=== PATIENT | female | born 1960 | race Caucasian/White ===

== ENCOUNTER → 2017-03-30 | Outpatient (CLI) | payer BC ==
[~2017-03-30] MED LIST: METO25TA56 PO
--- NOTE | 2017-03-30 12:16 | DIAGNOSTIC IMAGING REPORT ---
RIGHT ELBOW 4 VIEWS CLINICAL HISTORY: Fall with right elbow pain. FINDINGS: 4 views of the right elbow are compared to study dated 06/03/2008. The skeletal structures are osteopenic. There is a minimally angulated radial head fracture. No additional fracture is identified and no elbow dislocation is seen. There is associated joint effusion. Dorsal soft tissue edema is noted. IMPRESSION: Minimally angulated radial head fracture with associated joint effusion. Electronically signed by: Kane Peña M.D. 03/30/2017 12:15 PM Dictated Date/Time: 03/30/2017 12:13 PM
== END | disposition home or self-care (01) ==
LOC: C.RAD 11:43
PROVIDERS: ATTEND Family Medicine
DX: M25.521 Pain in right elbow (principal)

== ENCOUNTER → 2017-07-28 | Outpatient (CLI) | payer BC ==
--- NOTE | 2017-07-29 07:54 | MAMMOGRAPHY REPORT ---
BILATERAL DIGITAL SCREENING MAMMOGRAM TOMOSYNTHESIS WITH CAD: 07/28/2017 CLINICAL HISTORY: Routine screening. Patient has no complaints. TECHNIQUE: Breast tomosynthesis in addition to standard 2D mammography was performed. Current study was also evaluated with a Computer Aided Detection (CAD) system. COMPARISON: Comparison is made to exams dated: 07/26/2016 mammogram, 07/25/2015 mammogram, 4 mammogram, 07/21/2013 mammogram, 07/20/2012 mammogram, and 07/17/2011 mammogram - [facility]. BREAST COMPOSITION: The tissue of both breasts is heterogeneously dense, which may obscure small mas ses. FINDINGS: The parenchymal pattern is unchanged. No developing mass, architectural distortion or clus ter of suspicious microcalcifications is seen in either breast. There are mild vascular calcificatio ns in the breasts. A few scattered benign rim calcifications. IMPRESSION: ACR BI-RADS CATEGORY 2: BENIGN There is no mammographic evidence of malignancy. A 1 year screening mammogram is recommended. The pa tient will receive written notification of the results. Approximately 10% of breast cancers are not detected with mammography. A negative mammographic report should not delay biopsy if a clinically suggestive mass is present. Iva Campos M.D. ay/:07/28/2017 16:26:36 Event Set Up Specialist: Susanna RODRÍGUEZ(Brett)(M), [facility] letter sent: Normal 1/2 BI-RADS Code: ACR BI-RADS Category 2: Benign
== END | disposition home or self-care (01) ==
LOC: C.MAMM 14:39
PROVIDERS: ATTEND Nurse Practitioner Family
DX: Z12.31 Encounter for screening mammogram for malignant neoplasm of breast (principal)

== ENCOUNTER 2023-12-07 12:51 | Inpatient (IN) ==
--- OUTSIDE RECORDS SUMMARY | 2023-12-07 12:57 | External Medical Summary | Continuity of Care Document ---
Author Name Unknown Organization [facility] [address] [facility] [address] [id number] Care Team Providers Care Old [employer] Professor Name Role Phone Pancho Menjivar Primary Care Physician [phone] [id number] Date(s): 09/02/23 - 09/02/23 [facility] [address] [facility] [address] [phone] Encounter Diagnosis Changing skin lesion(Discharge Diagnosis) - 09/02/23 Discharge Disposition: Home or Self Care Attending Physician: REJI Hall, Coral Hay Referring Physician: MD Menjivar Dongsheng Allergies, Adverse Reactions, Alerts Substance Reaction Severity Status amoxicillin Rash Active Amoxil rash Active Immunizations Given and Recorded Vaccine Date Status Refusal Reason SARS COVID Vaccine Unspecified 06/10/23 Recorded influenza virus vaccine, inactivated 05/03/22 Give n influenza virus vaccine, inactivated 05/25/14 Chris rded SARS-CoV-2 mRNA (Pfizer 12+) bivalent 1 04/26/22 R ecorded SARS-CoV-2 mRNA (tozinameran 5y-11y) 2 11/27/21 Re corded SARS-CoV-2 (COVID-19) mRNA BNT-162b2 vax 3 05/16/21 Recorded SARS-CoV-2 (COVID-19) mRNA BNT-162b2 vax 4 08/21/20 Recorded SARS-CoV-2 (COVID-19) mRNA BNT-162b2 vax 5 07/28/20 Recorded zoster vaccine, inactivated 12/30/18 Given zoster vaccine, inactivated 10/26/18 Given tetanus/diphtheria/pertuss, acel (Tdap) 05/21/16 G iven tetanus/diphtheria/pertuss, acel (Tdap) 10/5/06 R ecorded influenza virus vaccine, H1N1 6 06/13/09 Recorded 1Result Comment: [facility] 2Result Comment: [facility] 3Result Comment: 2021-11-30: Historical information-source unspecified 4Result Comment: 2021-04-10: Historical information-source unspecified 5Result Comment: 2021-04-10: Historical information-source unspecified 6Result Comment: 2021-04-10: Historical information-source unspecified Medications Cortisporin Otic suspension Start: 04/10/21 10:46:00 EDT, 4 drop, both ears, qid, Disp# 10 mL, [id number] Start Date: 04/10/21 Stop Date: 04/15/21 Status: Ordered lisinopril 20 mg oral tablet Start: 07/31/23 16:20:00 EST, See Instructions, Disp# 90 tab, Refills: 0, TAKE 1 TABLET BY MOUTH EVERY DAY, [id number] Start Date: 07/31/23 Status: Ordered Metoprolol Succinate ER 50 mg oral tablet, extended release Start: 07/11/23 10:37:00 EST, 1 tab, PO, Daily, Disp# 90 tab, Refills: 3, [id number] Start Date: 07/11/23 Stop Date: 07/05/24 Status: Ordered Penlac Nail Lacquer 8% topical solution Start: 07/17/21 11:25:00 EST, 1 appl, topical, Daily, Disp# 6.6 mL, Refills: 4, [id number] Start Date: 07/17/21 Stop Date: 11/04/23 Status: Ordered valACYclovir 1 g oral tablet Start: 12/09/22 13:58:00 EDT, See Instructions, Disp# 60 tab, Refills: 0, TAKE 2 TABLETS EVERY 12 HOURS FOR 2 TO 3 DAYS FOR OUTBREAKOF COLD SORES NEEDED, [id number] Start Date: 12/09/22 Status: Ordered Mental Status 09/02/23 Barriers to Learning one year None evide nt Mandatory Health Literacy Documentation Yes Health Literacy Communication Barriers N ever Primary Language Icelandic Problem List Condition Confirmation Course Effective Dates Status H ealth Status Informant Allergic contact dermatitis Confirmed Active Contact dermatitis Confirmed Active Epidermal inclusion cyst Confirmed Active Hx stress fracture Confirmed Active Hammertoe of left foot Confirmed Active Bilateral high frequency sensorineural hearing loss Confirmed Active Hypertensive disorder Confirmed Active Plantar plate injury Confirmed Active Metatarsalgia, left foot Confirmed Active Tinea unguium Confirmed Active Right carpal tunnel syndrome Confirmed Active Seborrheic keratoses Confirmed Active Weight disorder Confirmed Active Diagnosis Diagnosis Type Effective Dates Health Status Cl inical Service Informant Changing skin lesion Discharge Diagnosis 09/02/23 Procedures Procedure Date Related Diagnosis Body Site Status Shave biopsy 1 09/02/23 Completed Shave biopsy 2 09/02/23 Completed Colonoscopy 3 09/19/21 Completed Mammogram 4 08/20/21 Completed Pap smear and HPV cotesting 5 10/07/20 Completed Bilateral digital screening mammogram tomosynthesis with synthetic 2D with CAD 6 08/17/20 Completed Biopsy of lesion of skin 7 12/03/19 Completed Mammogram 8 08/16/19 Completed Audiogram 9 10/08/18 Completed Mammogram 10 08/13/18 Completed Mammogram 11 07/28/17 Completed Elbow X-ray 12 03/30/17 Completed Mammogram 13 07/26/16 Completed Date of last PAP smear 14 09/13/15 Completed Mammogram 15 07/25/15 Completed Bone density scan 16 06/15/15 Comp leted X-ray of right foot 17 04/19/15 Co mpleted Delayed Bone scan of the feet 18 03/31/15 Completed Mammogram 19 07/22/14 Completed Mammogram 20 07/21/13 Completed DIAGNOSTIC COLONOSCOPY 09/12/11 Co mpleted Colonoscopy 21 09/11/10 Completed Tonsillectomy 1963 Completed CXR - Chest X-ray 22 Comp leted 12. left lateral lower leg 21. right central chest 3Impression: -Two 4 to 6 mm polyps in the rectum and in the sigmoid colon, removed with a hot snare. Resected and retrieved. -Non-bleeding internal hemorrhoids. 4There is no mammographic evidence of malignancy. 5Negative for intraepithelial lesion or malignancy. Atrophic pattern; predominantly parabasal cells HPV mRNA E6/E7 Not Detected 6Impression: ACR BI RADS CATEGORY 2: Benign There is no mammographic evidence of malignancy. A 1 year screening mammogram is recommended. 08/18/2021 7left labium skin biopsy: ulcerated squamous keratosis The specimen consists of somewhat maloriented, ulcerated skin. On gross exam it was noted to be polypoid. Reactive cellular changes are noted within the underlying inflamed granulation tissue and adjacent epidermis. No changes of dysplasia are identified. A GMS stain for fungal organisms is negative. 8negative for malignancy 9see scanned report 10Impression: There is no mammographic evidence of malignancy 11There is no mammogrpahic evidence of malignancy. A one year screening mammogram is recommended. 12Impression: Minimally angulated radial head fracture with associated joint effusion 13WNL 14WNL 15There is no mammographic evidence of malignancy. A 1year screening is recommened 16Next due Jun 2017 17There is a healing fracture involving the midshaft of the second metatarsal with significant overlying callus. Chronic posttraumatic deformity is seen incolving the midshaftof the fifth metatarsal. Soft tissue swelling and large plantar heel spur. 18Scintigraphic findings highly suggestive of a right second metatarsal stress fracture 19No mammographic evidnce of malignancy. 20WNL 21done age 50 22No active disease in the chest Social History Social History Type Response Smoking Status Never smoked cigaret ester Sex Female Dermatology Outpt Proc * REJI Hall, Coral Hay: PERFORM Event Display: Dermatology Outpt Proc Authored Date: [id number] DERMATOLOGY OUTPATIENT PROCEDURE NOTE Name: JUNG SEXTON Patient Number: [id number] : 1960 Date of Service: 09/02/2023 _ Diagnosis: changing skin lesion Location: #1: right central chest - 0.3mm white papule #2: left lateral lower leg - 0.7cm white hyperkeratotic papule Indication: r/o malignancy Procedure Note A shave skin biopsy #1 and #2 was performed after a time out (patient identified with full name andbirth date, site located and confirmed with team members) and verbal informed consent was obtained. Risks (infection, scar, bleeding) and benefits (proper diagnosis and treatment) were reviewed. Alternative options were discussed if applicable. Time was given to address and answer all questions. Photograph was taken to document location. Skin prep: isopropyl alcohol Anesthesia: 1% lidocaine with epinephrine Shave biopsy with derm blade. Hemostasis/Closure: aluminum chloride Dressing: sterile Verbal and written wound care instructions given. Patient was informed that further procedure(s) or treatment(s) may be needed pending pathology results. Patient is instructed to call should any problems or concerns arise. The patient agreed to call the office to obtain the test results if they have not been communicated to them within 2 weeks. Patient left after procedure in good condition. Call with questions or concerns. Follow up pending path. Patient in agreement with plan. Electronic Signature on File Electronically Reviewed/Signed by: GABO Doe Author Signature Dt/Tm:09/02/2023 01:11 PM Department of Family Medicine Department of Dermatology [facility] Patient Care team information Care Team Personnel Name: MD Ad, Mayank Moe Position: Physician - Family Med Member Role: Lifetime Relationship Address: Address: [address] [place] [address] [place] Name: MD Otto, Pancho Position: Physician - Family Med Member Role: Primary Care Provider Address: Address: [address] [place] [address] [place] Name: OG Ren Christina L Position: Physician - Podiatry Member Role: Lifetime Relationship Address: Address: [address] [place] [id number] [place] Name: TUTU Lucero Shari A Position: Nurse Pract - Family Med Member Role: Lifetime Relationship Address: Address: [address] [place] [id number] [place] Care Team Related Persons Name: ERLINDA SEXTON Address: home [address] [place] [phone] [place] Name: ERLINDA SEXTON Address: [facility] Address: home [address] [place] [phone]
[2023-12-07] MEDS: metroNIDAZOLE 500 MG/100 ML BAG IV STA (13:31)
[2023-12-07] MEDS: SODIUM CHLORIDE 0.9% 500 ML IV ONE (13:36)
--- NOTE | 2023-12-07 13:36 | Emergency Department Note ---
Impression & Plan Cellulitis of forearm, right, Cat bite of right forearm with infection ED Provider Note CHIEF COMPLAINT: Infected cat bite HISTORY OF PRESENT ILLNESS: This 63-year-old female patient presents to the emergency department by private vehicle with concern for an infected cat bite to the right forearm. The patient states that she has an outdoor cat that she handles and pets sometimes, she was lifting the cat onto her deck to feed him and her neighbors dogs charged her fence and startled the cat, causing him to scratch and bite her. She notes that she cleaned the scratches and bites initially, but they have started to appear infected today. She notes redness, swelling, and increasing pain. She has not noticed any fevers or chills. She is right-hand dominant. She reports that the cat's immunizations are up-to-date and he last received rabies in 2021. She is up-to-date on her tetanus as well. The patient complains of throbbing 3/10 pain at the site of the injury. Pain is worse with movement. She denies any numbness/tingling or weakness in the hand or fingers. REVIEW OF SYSTEMS: A complete 10 point review of systems was reviewed with the patient with pertinent positives and negatives as per history of present illness. All else were negative. ALLERGIES: Reviewed in chart with the patient PMH: Osteoarthritis, hypertension PHYSICAL EXAM: Vital Signs reviewed, see triage notes, low-grade fever noted. GENERAL: Pleasant and cooperative, awake, alert, well appearing, no acute distress. Non toxic in appearance. HEENT: Normocephalic, atraumatic. NECK: Supple, full active range of motion without discomfort. RESPIRATORY: Clear to auscultation bilaterally with no wheezing, crackles, rhonchi or stridor. Equal expansion bilaterally. CARDIOVASCULAR: Regular rate and rhythm with no murmurs, rubs or gallops. Normal peripheral perfusion, 2+ pulses in all 4 extremities. No peripheral edema. GASTROINTESTINAL: Soft, nontender, nondistended. No rebound tenderness or guarding. No palpable masses or HSM. Bowel sounds present in all quadrants. No CVA tenderness bilaterally. MUSCULOSKELETAL: Examination of the right forearm reveals 4 evenly spaced puncture type wounds that are scabbed over. There is mild swelling, erythema, and warmth surrounding the area. Tender to palpation. No crepitus noted. No joint space, tendon, or vascular involvement. Normal range of motion of the wrist without any pain. Distal pulses intact. Capillary refill brisk. INTEGUMENTARY: A few superficial scratches noted to the right upper arm, scabbed over, no erythema, warmth, or significant tenderness. No discharge. NEUROLOGIC: Alert and oriented X 4 with normal affect. Normal strength and sensation in all 4 extremities. Normal speech. Normal gait observed. ED COURSE AND MEDICAL DECISION MAKING: CC: Patient presenting with complaint of infected cat bite DIFFERENTIAL DIAGNOSIS: Includes, but not limited to cat bite, cellulitis, abscess, retained foreign body, sepsis/bacteremia, among others. INTERPRETATION OF LABS: Leukocytosis, no anemia, normal platelets, no significant electrolyte abnormalities, normal renal function. Lactate normal. Low procalcitonin. MEDICATION RECONCILIATION: I attest that I have personally reviewed the patient's current medication list. INITIAL VITAL SIGNS REVIEW: I reviewed the patient's initial vital signs and interpret them as follows: T: Low-grade fever; BP: Hypertensive; HR: Within normal limits; RR: Within normal limit; Pulse Ox: Within normal limits on room air. MDM SUMMARY: Patient was evaluated at bedside, history and physical exam performed. Patient is alert and oriented, in no acute distress, resting calmly on stretcher. She has noted to have a low-grade fever of 37.7, but otherwise appears stable and does not complain of feeling ill. Right arm notable for 4 puncture wounds consistent with cat bite, surrounding erythema, warmth and tenderness consistent with cellulitis. No lymphangitic streaking. A few superficial scratches also noted which do not appear to be infected. Orders were placed for labs, IV fluid bolus for hydration, x-ray of the right forearm, IV doxycycline and IV Flagyl to treat for cat bite cellulitis (patient allergic to amoxicillin). Department of Health paperwork was completed. The patient is up-to-date on her tetanus and the animal is up-to-date on its rabies vaccinations. Labs and imaging reviewed, noting a leukocytosis and otherwise fairly unremarkable labs. X-ray imaging demonstrated soft tissue swelling with no acute underlying bony abnormality or radiopaque foreign bodies and no soft tissue gas. The patient was initially made ready for discharge and she is asking to be discharged home. However, during her stay she did develop a fever of 38.8 and on reassessment her cellulitis has spread by about 10 cm since initial evaluation. Scabs over the puncture wounds were lifted and some purulent discharge was expressed from these as well. Patient did start to have some rigors with the fever, I recommended admission to the patient and she was agreeable to this plan. She was given additional IV fluid bolus for a total of 1500 mL according to sepsis protocol. Additional orders for blood cultures, lactate, and procalcitonin were also placed. I spoke on phone with Dr. Veloz, [facility] hospitalist, who agrees to evaluate the patient for admission. The patient was stable at the time of admission. Patient discussed with Dr. Mcneill, ED attending, who agrees with my assessment, plan, and disposition. The chart was completed utilizing [employer] Speech voice recognition software. Grammatical errors, random word insertions, pronoun errors, and incomplete sentences are an occasional consequence of this system due to software limitations, ambient noise, and hardware issues. Any formal questions or concerns about the content, text, or information contained within the body of this dictation should be directly addressed to the nurse practitioner for clarification. Past Med/Surg History Medical History (Updated 12/07/23 @ 16:40 by TUTU Crockett) Osteoarthritis Irregular heart beat reason for metoprolol---follows with PCP Bilateral tinnitus Sensorineural hearing loss (SNHL) of both ears Hypertension Surgical History History of needle biopsy benign on breast History of surgery on finger at the age of 2 History of colonoscopy History of wisdom tooth extraction History of arthroscopic knee surgery left - 2015 History of tonsillectomy Age 3 Family History Mother Hearing loss Hypertension Grandmother Hearing loss Hypertension Father Cancer Brother Allergies Other No family history of adverse response to anesthesia No family history of bleeding disorder Social History (Updated 11/08/20 @ 14:18 by Letha Gustafson MA) Smoking Status: Never smoker Second Hand Exposure: No; Do You Dip or Chew Tobacco: No; Hx Alcohol Use: Yes Alcohol Intake Frequency: 2-3 x/Week Hx Substance Use: No Preferred Language: Swazi Communication Ability: Effective Economics Instructor Required: No Beliefs That Will Affect Care: None Current Living Situation: Spouse Feels Safe at Home: Yes Assistive Devices: Glasses Allergies Allergies Allergy/AdvReac Type Severity Reaction Status Date / Time amoxicillin Allergy Intermediate rash/hives Verified 09/19/21 13:45 Home Meds Home Medications Medication Instructions Recorded Confirmed calcium carbonate (Calcium 600) 600 mg PO BID 09/13/21 12/07/23 ibuprofen 200 mg tablet 400 mg PO Q6H PRN Pain 09/13/21 12/07/23 lisinopril 10 mg tablet 20 mg PO HS 09/13/21 12/07/23 multivitamin 1 tab PO QAM 09/13/21 12/07/23 valacyclovir 1 gram tablet 1,000 mg PO DAILY PRN ud 09/13/21 12/07/23 metoprolol succinate 50 mg 50 mg PO HS 09/19/21 12/07/23 tablet,extended release 24 hr Previous Rx's Medication Instructions Recorded doxycycline hyclate 100 mg capsule 100 mg PO Q12H 10 days #20 caps 12/07/23 metronidazole 500 mg tablet 500 mg PO Q8H 10 days #30 tabs 12/07/23 Results & Data (ED) Vital Signs Vital Signs - 24 hr 12/07/23 13:00 12/07/23 16:37 12/07/23 16:38 Temperature 37.7 C H 38.8 C H Temperature Source Temporal Artery Scan Oral Pulse Rate 88 Pulse Rate [Radial] 91 H Pulse Rhythm [Radial] Regular Respiratory Rate 18 18 Respiratory Effort / Characteristics Non-Labored Non-Labored Respiratory Depth Normal Normal Respiratory Pattern Regular Regular Blood Pressure 177/96 H Blood Pressure [Left Arm] 174/84 H Blood Pressure Mean 123 Blood Pressure Mean [Left Arm] 114 Pulse Oximetry 94 97 Oxygen Delivery Method Room Air Room Air Sepsis Recent Fever Within 48 Hours No Sepsis New/Unexplained Change in Mental Status N/A Sepsis Action Taken by Nursing No Action Required Laboratory Data 12/07/23 13:24 12/07/23 13:24 Lab Results 12/07/23 12/07/23 Range/Units 13:24 17:06 WBC 13.99 H (4.8-10.8) K/ul RBC 4.75 (4.20-5.40) M/uL Hgb 13.8 (12.0-16.0) g/dl Hct 42.0 (37.0-47.0) % MCV 88.4 (80.0-100.0) fL MCH 29.1 (25.0-34.0) pg MCHC 32.9 (32.0-36.0) g/dL RDW Std Deviation 42.8 (36.4-46.3) fL RDW Coeff of Peter 13.2 (11.5-14.5) % Plt Count 249 (130-400) K/uL MPV 9.7 (9.4-12.4) fL Immature Gran % (Auto) 0.4 % Neut % (Auto) 80.2 % Lymph % (Auto) 10.6 % [place] % (Auto) 6.9 % Eos % (Auto) 1.5 % Baso % (Auto) 0.4 % Neut # (Auto) 11.21 H (1.40-6.50) K/uL Lymph # (Auto) 1.48 (1.20-3.40) K/uL [place] # (Auto) 0.97 H (0.11-0.59) K/uL Eos # (Auto) 0.21 (0.00-0.50) K/uL Baso # (Auto) 0.06 (0.00-0.20) K/uL Immature Gran # (Auto) 0.06 (0.01-0.20) K/uL Sodium 137 (136-145) mmol/L Potassium 3.6 (3.5-5.1) mmol/L Chloride 102 (98-107) mmol/L Carbon Dioxide 27 (21-32) mmol/L Anion Gap 8 (3-11) BUN 18 (6-23) mg/dl Creatinine 0.73 (0.6-1.2) mg/dl Est Cr Clr Drug Dosing 80.3 ml/min Est GFR ( Amer) 100.2 ml/min Est GFR (Non-Af Amer) 86.4 ml/min BUN/Creatinine Ratio 24.7 H (10-20) Glucose 105 H (70-99(Fasting)) mg/dl Lactate 0.8 (0.4-2.0) mmol/L Calcium 9.0 (8.6-10.3) mg/dl Procalcitonin 0.03 (0-0.5) ng/ml Administered Medications Calcium Carbonate (Calcium Carbonate 1250mg Tab) 1 tab PO BID JESSICA Stop: 01/06/24 20:59 Last Admin: 12/07/23 21:19 Dose: Not Given Discontinued Medications Acetaminophen (Acetaminophen 325 Mg Tab) 650 mg PO NOW STA Stop: 12/07/23 16:44 Last Admin: 12/07/23 16:50 Dose: 650 mg Documented By: CHENTE Sodium Chloride (Nss) 500 mls @ 999 mls/hr IV .Q31M ONE Stop: 12/07/23 13:47 Last Infusion: 12/07/23 14:41 Dose: Infused Documented By: Admin: 12/07/23 13:36 Dose: 999 mls/hr Documented By: NIKHIL Doxycycline Hyclate 100 mg/ (Dextrose) 100 mls @ 50 mls/hr IV NOW STA Stop: 12/07/23 15:19 Last Infusion: 12/07/23 15:55 Dose: Infused Documented By: Admin: 12/07/23 13:55 Dose: 50 mls/hr Documented By: NIKHIL Metronidazole (Flagyl) 500 mg in 100 mls @ 100 mls/hr IV NOW STA; Protocol Stop: 12/07/23 14:19 Last Infusion: 12/07/23 14:41 Dose: Infused Documented By: Admin: 12/07/23 13:31 Dose: 100 mls/hr Documented By: NIKHIL Sodium Chloride (Nss) 1,000 mls @ 999 mls/hr IV .Q1H1M ONE Stop: 12/07/23 17:55 Last Infusion: 12/07/23 18:42 Dose: Infused Documented By: Admin: 12/07/23 17:05 Dose: 999 mls/hr Documented By: CHENTE Imaging Data Radiologist's Impression: Forearm X-Ray 12/07/23 13:17 XR forearm RT 2V CLINICAL HISTORY: cat bite infected COMPARISON STUDY: Right elbow 03/30/2017. FINDINGS: No acute fracture or dislocation within the right forearm. No bony destructive changes to suggest osteomyelitis. There is mid to distal soft tissue swelling within the right forearm. There is an old, healed radial head fracture. No elbow effusion. No soft tissue gas or radiopaque foreign bodies. IMPRESSION: Soft tissue swelling within the mid to distal right forearm. No acute underlying bony abnormality. ACT 112: Negative or not required by law. Electronically signed by: Paolo Hill M.D. 12/07/2023 1:59 PM Discharge Plan Visit Data Chief Complaint: Animal Bite Stated Complaint: CAT BITE, CELLULITIS ED Provider: Mario Mcneill ED Midlevel Provider: Julianne Abrams Discharge Problem: Cellulitis of forearm, right, Cat bite of right forearm with infection Patient Disposition: Admitted As Inpatient Condition: Good Discharge Instructions Interventions: ED Discharge Assessment Last Done: 12/07/23 20:02 Discharge Problem: Cat bite of right forearm with infection Qualifiers: Encounter type: initial encounter Qualified Code(s): S51.851A - Open bite of right forearm, initial encounter
[2023-12-07 13:38] LABS: Basophils # (auto) 0.06 K/uL (0.00-0.20); Basophils % (auto) 0.4 %; Eosinophils # (auto) 0.21 K/uL (0.00-0.50); Eosinophils % (auto) 1.5 %; Hemoglobin 13.8 g/dl (12.0-16.0); Immature Granulocytes # (auto) 0.06 K/uL (0.01-0.20); Immature Granulocytes % (auto) 0.4 %; Lymphocytes # (auto) 1.48 K/uL (1.20-3.40); Lymphocytes % (auto) 10.6 %; Mean Corpuscular Hemoglobin 29.1 pg (25.0-34.0); Mean Corpuscular Hgb Conc 32.9 g/dL (32.0-36.0); Mean Corpuscular Volume 88.4 fL (80.0-100.0); Mean Platelet Volume 9.7 fL (9.4-12.4); Monocytes # (auto) 0.97 K/uL (0.11-0.59); Monocytes % (auto) 6.9 %; Neutrophils # (auto) 11.21 K/uL (1.40-6.50); Neutrophils % (auto) 80.2 %; Platelet Count 249 K/uL (130-400); RDW Coefficient of Variation 13.2 % (11.5-14.5); RDW Standard Deviation 42.8 fL (36.4-46.3); Red Blood Count 4.75 M/uL (4.20-5.40); White Blood Count 13.99 K/ul (4.8-10.8)
--- NOTE | 2023-12-07 13:41 | Emergency Department Note ---
ED Visit Note I was consulted by the Advanced Practice Provider TUTU Croft. I personally made/approved the management plan and take responsibility for the patient management. I performed a substantive portion of the visit. This includes the aspects of: -History/Physical/Personally seeing the patient -MDM -I independently interpreted the following studies: Right forearm x-ray does not show evidence of foreign body or fracture Patient presented due to concern for Bite and redness. Patient did have blood work completed mild ovation white count. Patient did develop a fever while in the department and did have some expanding redness during the time that she was here so the decision was made to admit the patient .
[2023-12-07 13:53] LABS: BUN Creatinine Ratio 24.7 (10-20); Creatinine Clr Calc Pharmacy 80.3 ml/min; Est GFR (African American) 100.2 ml/min; Est GFR (Non-African American) 86.4 ml/min; Potassium 3.6 mmol/L (3.5-5.1)
[2023-12-07] MEDS: DOXYCYCLINE HYCLATE 100 MG in DEXTROSE 5% MINI-B 100 ML IV STA (13:55)
--- NOTE | 2023-12-07 14:01 | XRay Report ---
XR forearm RT 2V CLINICAL HISTORY: cat bite infected COMPARISON STUDY: Right elbow 03/30/2017. FINDINGS: No acute fracture or dislocation within the right forearm. No bony destructive changes to s uggest osteomyelitis. There is mid to distal soft tissue swelling within the right forearm. There is an old, healed radial head fracture. No elbow effusion. No soft tissue gas or radiopaque foreign bodi es. IMPRESSION: Soft tissue swelling within the mid to distal right forearm. No acute underlying bony ab normality. ACT 112: Negative or not required by law. Electronically signed by: Paolo Hill M.D. 12/07/2023 1:59 PM
[2023-12-07] MEDS: ACETAMINOPHEN 325 MG TAB PO STA (16:50)
[2023-12-07] MEDS: SODIUM CHLORIDE 0.9% 1,000 ML IV ONE (17:05)
--- NOTE | 2023-12-07 17:24 | History & Physical Report ---
Date of Service December 07, 2023 Assessment & Plan (1) Cat bite of right forearm with infection: Plan: Intravenous Cleocin, day 1. Serial labs. Local care and pain control measures (2) Hypertension: Plan: Continue lisinopril and metoprolol. Plan Hopeful discharge back to home on oral Cleocin within the next day or 2 History of Present Illness Chief Complaint: Cat bite right forearm Primary Care Provider: Pancho Menjivar 63-year-old white female who suffered a cat bite from a domestic cat yesterday involving the dorsal aspect of the right forearm. She now has evidence of cellulitis but no definite evidence of abscess. She does have some purulence from the bite sites. White count is 13,900. She has a low-grade fever. She is allergic to amoxicillin. She will be treated with intravenous Cleocin. She is admitted for further evaluation and treatment. The patient states the cat is up-to-date on all of her shots Allergies Allergy/AdvReac Type Severity Reaction Status Date / Time amoxicillin Allergy Intermediate rash/hives Verified 09/19/21 13:45 Home Medications Medication Instructions Recorded Confirmed Type calcium carbonate (Calcium 600) 600 mg PO BID 09/13/21 12/07/23 History ibuprofen 200 mg tablet 400 mg PO Q6H PRN Pain 09/13/21 12/07/23 History lisinopril 10 mg tablet 20 mg PO HS 09/13/21 12/07/23 History multivitamin 1 tab PO QAM 09/13/21 12/07/23 History valacyclovir 1 gram tablet 1,000 mg PO DAILY PRN ud 09/13/21 12/07/23 History metoprolol succinate 50 mg 50 mg PO HS 09/19/21 12/07/23 History tablet,extended release 24 hr doxycycline hyclate 100 mg capsule 100 mg PO Q12H 10 days #20 caps 12/07/23 Rx metronidazole 500 mg tablet 500 mg PO Q8H 10 days #30 tabs 12/07/23 Rx Past Med/Surg History Medical History (Updated 12/07/23 @ 16:40 by TUTU Crockett) Osteoarthritis Irregular heart beat reason for metoprolol---follows with PCP Bilateral tinnitus Sensorineural hearing loss (SNHL) of both ears Hypertension Surgical History History of needle biopsy benign on breast History of surgery on finger at the age of 2 History of colonoscopy History of wisdom tooth extraction History of arthroscopic knee surgery left - 2015 History of tonsillectomy Age 3 Family History Mother Hearing loss Hypertension Grandmother Hearing loss Hypertension Father Cancer Brother Allergies Other No family history of adverse response to anesthesia No family history of bleeding disorder Social History (Updated 11/08/20 @ 14:18 by Letha Gustafson MA) Smoking Status: Never smoker Second Hand Exposure: No; Do You Dip or Chew Tobacco: No; Hx Alcohol Use: Yes Alcohol Intake Frequency: 2-3 x/Week Hx Substance Use: No Preferred Language: Syriac Communication Ability: Effective Manager Transition Required: No Beliefs That Will Affect Care: None Current Living Situation: Spouse Feels Safe at Home: Yes Assistive Devices: Glasses Review of Systems 2 Review of Systems: Constitutional-no fever or chills ENT-no blurred vision, no double vision, no epistaxis, no sore throat Respiratory-no cough, no wheezing, no shortness of breath Cardiac-no palpitations, no chest pain, no syncope GI-no nausea, vomiting, diarrhea, melena, hematochezia -no urinary retention, no urinary incontinence, no dysuria, no hematuria Musculoskeletal-no joint pain, no muscle tenderness. Tenderness, swelling and erythema along the dorsal aspect of the right forearm Skin-no bruising, no rashes, no pruritus Neuro-no isolated weakness, no paresthesia Psych-no depression, no anxiety Physical Exam 2 Physical Exam: General-alert and oriented x3, no fever, no chills HEENT-head atraumatic and normocephalic, pupils equal and reactive to light, extraocular muscles intact Neck-no lymphadenopathy or thyromegaly, trachea midline Chest-clear to auscultation. No rales, wheezing or rhonchi Cardiac-regular rate and rhythm, normal S1 and S2 Abdomen-normal bowel sounds, no hepatosplenomegaly Extremities-cellulitic erythema tenderness and swelling along the dorsal aspect of the right forearm. Several cat bite sites identified. Purulent drainage was expressed by the initial provider during their assessment Neuro-cranial nerves II through XII intact, motor and sensory function within normal limits, strength symmetrical, no focal deficits Psych-normal affect, normal mood Results & Data Results & Data Vital Signs (Past 12 Hours) Vital Signs Temp Pulse Pulse Resp BP BP Pulse Ox 12/07/23 16:38 91 H 18 174/84 H 97 12/07/23 16:37 38.8 C H 12/07/23 13:00 37.7 C H 88 18 177/96 H 94 O2 Del Method 12/07/23 16:38 Room Air 12/07/23 16:37 12/07/23 13:00 Room Air Laboratory Results 12/07/23 13:24 12/07/23 13:24 Code Status & VTE Plan Code Status Full code PG Care Time/CCT Total # of Minutes Spent Total Time Spent with Patient: Total time spent is greater than 50% in coordination of care (as documented) at patient's floor/unit and/or counseling patient: Coding Level of Care Code 59836 INT INP/OBS CARE 3/75MIN Diagnoses Cat bite of right forearm with infection S51.851A; L08.9; W55.01XA Encounter type: initial encounter Hypertension I10 (1) Cat bite of right forearm with infection Encounter type: initial encounter Qualified Code(s): S51.851A - Open bite of right forearm, initial encounter; L08.9 - Local infection of the skin and subcutaneous tissue, unspecified; W55.01XA - Bitten by cat, initial encounter
[2023-12-07] MEDS ORDERED: ACETAMINOPHEN 325 MG TAB PO PRN (20:01)
[2023-12-07] MEDS ORDERED: IBUPROFEN 200 MG TAB PO PRN (20:01)
[2023-12-07] MEDS: CALCIUM CARBONATE 1250MG TAB PO SCH (21:19)
[2023-12-07] MEDS: ONDANSETRON INJ 2 MG/ML 2 ML VIAL IV PRN (21:28)
[2023-12-07] MEDS: METOPROLOL SUCC 50MG EXT REL TAB PO SCH (22:16)
[2023-12-07] MEDS: CLINDAMYCIN/D5W 600 MG/50 ML BAG IV SCH (22:16)
[2023-12-07] MEDS: lisinopril 20 MG TAB PO SCH (22:16)
[2023-12-08 07:24] LABS: Basophils # (auto) 0.04 K/uL (0.00-0.20); Basophils % (auto) 0.3 %; Eosinophils # (auto) 0.02 K/uL (0.00-0.50); Eosinophils % (auto) 0.1 %; Hematocrit (blood only) 38.2 % (37.0-47.0); Hemoglobin 12.6 g/dl (12.0-16.0); Immature Granulocytes # (auto) 0.07 K/uL (0.01-0.20); Immature Granulocytes % (auto) 0.5 %; Lymphocytes # (auto) 2.14 K/uL (1.20-3.40); Lymphocytes % (auto) 13.8 %; Mean Corpuscular Hemoglobin 29.2 pg (25.0-34.0); Mean Corpuscular Volume 88.6 fL (80.0-100.0); Mean Platelet Volume 9.8 fL (9.4-12.4); Monocytes # (auto) 1.25 K/uL (0.11-0.59); Monocytes % (auto) 8.1 %; Neutrophils # (auto) 11.96 K/uL (1.40-6.50); Neutrophils % (auto) 77.2 %; Platelet Count 230 K/uL (130-400); RDW Coefficient of Variation 13.2 % (11.5-14.5); RDW Standard Deviation 43.3 fL (36.4-46.3); Red Blood Count 4.31 M/uL (4.20-5.40); White Blood Count 15.48 K/ul (4.8-10.8)
[2023-12-08 07:51] LABS: BUN Creatinine Ratio 17.6 (10-20); Calcium 8.5 mg/dl (8.6-10.3); Creatinine Clr Calc Pharmacy 86.8 ml/min; Est GFR (African American) 106.4 ml/min; Est GFR (Non-African American) 91.8 ml/min; Potassium 3.7 mmol/L (3.5-5.1)
[2023-12-08] MEDS: MULTIVITAMIN TAB PO SCH (08:09)
[2023-12-08] MEDS: CIPROFLOXACIN / D5W 400 MG/200 ML BAG IV SCH (12:08)
--- NOTE | 2023-12-08 12:39 | Hospitalist Progress Note ---
Date of Service December 08, 2023 Assessment & Plan (1) Cat bite of right forearm with infection: Plan: Appears to have progressed. White blood cell count has increased. Clindamycin day 2. Will add Cipro, day 1. Serial labs. Local care and pain control measures (2) Hypertension: Plan: Stable. Continue lisinopril and metoprolol. Plan Hopeful discharge back to home on oral Cleocin and ciprofloxacin within the next day or 2 Admission and Anticipated Discharge Date Admission Date: December 07, 2023 Subjective Alert and oriented. Afebrile and stable. Cellulitic process of the right forearm appears to have progressed. White blood cell count has increased to 15,000. Cipro has been added to clindamycin. Review of Systems 2 Review of Systems: Constitutional-no fever or chills ENT-no blurred vision, no double vision, no epistaxis, no sore throat Respiratory-no cough, no wheezing, no shortness of breath Cardiac-no palpitations, no chest pain, no syncope GI-no nausea, vomiting, diarrhea, melena, hematochezia -no urinary retention, no urinary incontinence, no dysuria, no hematuria Musculoskeletal-no joint pain, no muscle tenderness. Tenderness, swelling and erythema along the dorsal aspect of the right forearm extending into the hand Skin-no bruising, no rashes, no pruritus Neuro-no isolated weakness, no paresthesia Psych-no depression, no anxiety Physical Exam 2 Physical Exam: General-alert and oriented x3, no fever, no chills HEENT-head atraumatic and normocephalic, pupils equal and reactive to light, extraocular muscles intact Neck-no lymphadenopathy or thyromegaly, trachea midline Chest-clear to auscultation. No rales, wheezing or rhonchi Cardiac-regular rate and rhythm, normal S1 and S2 Abdomen-normal bowel sounds, no hepatosplenomegaly Extremities-cellulitic erythema tenderness and swelling along the dorsal aspect of the right forearm extending into the hand area. Several cat bite sites identified. Purulent drainage was expressed by the initial provider during their assessment Neuro-cranial nerves II through XII intact, motor and sensory function within normal limits, strength symmetrical, no focal deficits Psych-normal affect, normal mood Results & Data Results & Data Vital Signs (Past 12 Hours) Vital Signs Temp Pulse Resp BP Pulse Ox O2 Del Method 12/08/23 07:10 36.9 C 72 18 135/78 95 Room Air Laboratory Results 12/08/23 06:41 12/08/23 06:41 PG Care Time/CCT Total # of Minutes Spent Total Time Spent with Patient: Total time spent is greater than 50% in coordination of care (as documented) at patient's floor/unit and/or counseling patient: Coding Level of Care Code 04834 SUB INP/OBS CARE 3/50MIN Diagnoses Cat bite of right forearm with infection S51.851A; L08.9; W55.01XA Encounter type: initial encounter Hypertension I10 (1) Cat bite of right forearm with infection Encounter type: initial encounter Qualified Code(s): S51.851A - Open bite of right forearm, initial encounter; L08.9 - Local infection of the skin and subcutaneous tissue, unspecified; W55.01XA - Bitten by cat, initial encounter
[2023-12-09 07:34] LABS: Basophils # (auto) 0.04 K/uL (0.00-0.20); Basophils % (auto) 0.5 %; Eosinophils % (auto) 2.6 %; Hematocrit (blood only) 35.6 % (37.0-47.0); Hemoglobin 11.7 g/dl (12.0-16.0); Immature Granulocytes # (auto) 0.03 K/uL (0.01-0.20); Immature Granulocytes % (auto) 0.4 %; Lymphocytes # (auto) 1.33 K/uL (1.20-3.40); Mean Corpuscular Hemoglobin 29.3 pg (25.0-34.0); Mean Corpuscular Hgb Conc 32.9 g/dL (32.0-36.0); Mean Corpuscular Volume 89.2 fL (80.0-100.0); Mean Platelet Volume 9.8 fL (9.4-12.4); Monocytes # (auto) 0.97 K/uL (0.11-0.59); Monocytes % (auto) 12.4 %; Neutrophils # (auto) 5.26 K/uL (1.40-6.50); Neutrophils % (auto) 67.1 %; Platelet Count 198 K/uL (130-400); RDW Coefficient of Variation 13.2 % (11.5-14.5); RDW Standard Deviation 43.5 fL (36.4-46.3); Red Blood Count 3.99 M/uL (4.20-5.40); White Blood Count 7.83 K/ul (4.8-10.8)
[2023-12-09 07:48] LABS: BUN Creatinine Ratio 18.6 (10-20); Calcium 8.3 mg/dl (8.6-10.3); Creatinine Clr Calc Pharmacy 100.1 ml/min; Est GFR (African American) 111.5 ml/min; Est GFR (Non-African American) 96.2 ml/min; Potassium 3.7 mmol/L (3.5-5.1)
--- NOTE | 2023-12-09 11:39 | Discharge Summary ---
Date of Service December 09, 2023 Admission HPI Per Admitting Provider 63-year-old white female who suffered a cat bite from a domestic cat yesterday involving the dorsal aspect of the right forearm. She now has evidence of cellulitis but no definite evidence of abscess. She does have some purulence from the bite sites. White count is 13,900. She has a low-grade fever. She is allergic to amoxicillin. She will be treated with intravenous Cleocin. She is admitted for further evaluation and treatment. The patient states the cat is up-to-date on all of her shots Principal Diagnosis Right forearm cat bite with cellulitis Discharge Exam General-alert and oriented x3, no fever, no chills HEENT-head atraumatic and normocephalic, pupils equal and reactive to light, extraocular muscles intact Neck-no lymphadenopathy or thyromegaly, trachea midline Chest-clear to auscultation. No rales, wheezing or rhonchi Cardiac-regular rate and rhythm, normal S1 and S2 Abdomen-normal bowel sounds, no hepatosplenomegaly Extremities-cellulitic erythema tenderness and swelling along the dorsal aspect of the right forearm extending into the hand area has markedly improved since yesterday. Several cat bite puncture wounds are noted Neuro-cranial nerves II through XII intact, motor and sensory function within normal limits, strength symmetrical, no focal deficits Psych-normal affect, normal mood Discharge Data Allergies Allergy/AdvReac Type Severity Reaction Status Date / Time amoxicillin Allergy Intermediate rash/hives Verified 09/19/21 13:45 Consultations 12/07/23 16:54 ED Decision to Admit Stat Hospital Course (1) Cat bite of right forearm with infection: Marked improvement after addition of ciprofloxacin to the clindamycin. She is afebrile and white blood cell count has decreased to 7800. Will discharge home today on oral clindamycin and oral ciprofloxacin. Appears to have progressed. White blood cell count has increased. Clindamycin day 2. Will add Cipro, day 1. Serial labs. Local care and pain control measures (2) Hypertension: Stable. Continue lisinopril and metoprolol. Plan Home todayDecember 08 Total Time Total Time Spent Total Time Spent (In Minutes): 45-minute Discharge Plan Discharge Items Patient Disposition: Home - Self-Care Reason For Visit: WESLEY BITE CELLULITIS, ARM Discharge Diagnosis: Right forearm cat bite with cellulitis Condition on Discharge: Good Activity: Resume your previous activity Non-emergency contact: Primary Care Provider Call non-emergency contact if: your symptoms worsen Follow-up/Referrals: Pancho Menjivar [Primary Care Provider] - 12/19/23 10:25 am (Please arrive at 10:25 for a 10:40 appointment. Appointment will be with ) Diet: Regular and Heart Healthy Addtl Attending Provider Instructions: Take clindamycin and ciprofloxacin antibiotics for 5 more days Pending Studies at Discharge: No Stand-Alone Forms: My [facility] [place] tritrue, Smoking Cessation Medications and DC Order Prescriptions: New clindamycin HCl 300 mg capsule 300 mg PO QID Qty: 20 0RF ciprofloxacin HCl [Cipro] 500 mg tablet 500 mg PO BID Qty: 10 0RF Continued multivitamin Tablet 1 tab PO QAM valacyclovir 1 gram Tablet 1,000 mg PO DAILY PRN (Reason: ud) calcium carbonate [Calcium 600] 600 mg calcium (1,500 mg) Tablet 600 mg PO BID lisinopril 10 mg Tablet 20 mg PO HS ibuprofen 200 mg Tablet 400 mg PO Q6H PRN (Reason: Pain) metoprolol succinate 50 mg Tablet Extended Release 24 Hr 50 mg PO HS Discharge Orders: Discharge Order (Routine); Ordered 12/09/23 Ordered By: Masood Veloz Admission Data Admit Date/Time: 12/07/23 17:11 Attending Provider: Masood Vleoz Admit Provider: Masood Veloz Primary Care Provider: Pancho Menjivar Other Providers: Masood Veloz Coding Level of Care Code 88243 INP/OBS DISCH >30 MIN Diagnoses Cat bite of right forearm with infection S51.851A; L08.9; W55.01XA Encounter type: initial encounter Hypertension I10
== END 2023-12-09 13:34 | disposition home or self-care (01) | DRG 605 ==
LOC: ED 12:51 → EDINP 17:11 → 3N 20:02